=== PATIENT | female | born 1970 | race American Indian/Alaskan Native ===

== ENCOUNTER 2019-06-23 04:35 | Emergency (ER) | payer OTHER ==
[~2019-06-23] VITALS: Ht 165.1 cm; Wt 97.5 kg
[2019-06-23] MEDS ORDERED: GLIPIZIDE XL10 MG PO (04:52)
[2019-06-23] MEDS ORDERED: METFORMIN HCL500 M1 PO (04:52)
[2019-06-23] MEDS ORDERED: MINOCYCLINE HC100 MG PO (04:53)
[2019-06-23] MEDS ORDERED: LANTUS SOL100 UNIT/1 SUB-Q (04:53)
--- NOTE | 2019-06-23 16:38 | EKG ---
[facility] [address] [facility] [place] [address] Signed Normal sinus rhythm Normal ECG No previous ECGs available Confirmed by RACHELLE ARELLANO MD ([id number]) on 06/23/2019 4:37:49 PM Electronically Signed By: RACHELLE ARELLANO MD 06/23/19 1638 PATIENT NAME: RENÉE ROMAN Electrocardiogram DATE OF : 68 PHYSICIAN: RACHELLE ARELLANO MD REPORT #: [id number] REPORT IS CONFIDENTIAL AND NOT TO BE RELEASED WITHOUT AUTHORIZATION
== END 2019-06-23 05:35 | disposition home or self-care (01) ==
LOC: ED 04:35
DX: R07.9 Chest pain, unspecified (principal); E11.9 Type 2 diabetes mellitus without complications; Z79.84 Long term (current) use of oral hypoglycemic drugs
CPT/HCPCS: 71045; 80053; 83735; 84484; 85025; 93005; 93010; 99285-25

== ENCOUNTER 2020-06-27 12:26 | Emergency (ER) | payer OTHER ==
[~2020-06-27] VITALS: Ht 165.1 cm; Wt 97.5 kg
[~2020-06-27 12:26] MED LIST: GLIPIZIDE XL10 MG PO; LANTUS SOL100 UNIT/1 SUB-Q; METFORMIN HCL500 M1 PO; MINOCYCLINE HC100 MG PO
== END 2020-06-27 14:47 | disposition home or self-care (01) ==
LOC: ED 12:26
DX: N93.9 Abnormal uterine and vaginal bleeding, unspecified (principal); E11.9 Type 2 diabetes mellitus without complications; Z79.899 Other long term (current) drug therapy; Z79.4 Long term (current) use of insulin
CPT/HCPCS: 76830; 76856; 80048; 81001; 84702; 85025; 99284-25

== ENCOUNTER 2022-11-15 06:29 | Day surgery (SDC) | payer OTHER ==
--- NOTE | ~2022-11-15 | OR ---
[facility] [address] [place], [place] [address] Draft DATE OF OPERATION: 11/15/2022 SURGEON: Domonique Ortega MD PREOPERATIVE DIAGNOSIS: Colon screening, episodic rectal bleeding. POSTOPERATIVE DIAGNOSIS: Two small polyps of the rectosigmoid (excised) and internal hemorrhoids. PROCEDURE: Total colonoscopy to the cecum with cold morcellation polypectomy x2. ANESTHESIA: Intravenous sedation; fentanyl 100 mcg and Versed 5 mg. INDICATION: This 52-year-old woman is a patient of Dr. Gonzalez at [facility] and referred for colon screening. She has episodic rectal bleeding, none in recent times. She has had colonoscopy in 1999 and has no family history of colon cancer that she is aware of. She understands the risk of bleeding, infection and perforation related to colonoscopy and wished to proceed. FINDINGS: The prep was excellent. Complete colonoscopy was undertaken to the cecum without question. She had two very small polyps of the rectosigmoid, both excised. Retroflexed view confirmed internal hemorrhoidal changes. She had no sign of active bleeding at this time. DESCRIPTION OF PROCEDURE: The patient was brought to the endoscopy suite and placed in the lateral decubitus position, given intravenous sedation to the point of slurred speech and nystagmus. Digital rectal examination was normal. An Olympus video colonoscope was passed in the rectum and manipulated throughout the colon ultimately intubating the cecum itself. The ileocecal valve and the appendiceal orifice were normal. The scope was withdrawn from that point and examination throughout undertaken ultimately showing two very small polyps in the rectosigmoid, both were excised with cold morcellation technique. Retroflexed view was undertaken showing internal hemorrhoidal change. The hemorrhoids were not bleeding. The scope was PATIENT NAME: RENÉE ROMAN OPERATIVE REPORT DATE OF : 68 REPORT #: [id number] PHYSICIAN: DOMONIQUE ORTEGA MD PCP: ARELY GONZALEZ MD REPORT IS CONFIDENTIAL AND NOT TO BE RELEASED WITHOUT AUTHORIZATION [facility] [address] [place], [place] [address] Draft withdrawn and removed. The patient was taken to the recovery room in good condition. CONCLUDING DIAGNOSES: 1. Two small polyps of the rectosigmoid (excised). 2. Internal hemorrhoids. PLAN: Recommend repeat colonoscopy in 3 to 5 years, sooner if clinically indicated. Would recommend high-fiber diet. If recurrent rectal bleeding should recur, consideration for internal hemorrhoidal banding would be undertaken. She will return to the ongoing care of Dr. Gonzalez at [facility]. MD HAMZAH Turcios/MODL /[id number] cc: Arely Gonzalez MD Copies: ARELY GONZALEZ MD ~ PATIENT NAME: RENÉE ROMAN OPERATIVE REPORT DATE OF : 68 REPORT #: [id number] PHYSICIAN: DOMONIQUE ORTEGA MD PCP: ARELY GONZALEZ MD REPORT IS CONFIDENTIAL AND NOT TO BE RELEASED WITHOUT AUTHORIZATION
[2022-11-15 06:45] VITALS: BP 136/79
[2022-11-15] MEDS ORDERED: OZEMPIC0.25 MG/01 SQ (06:48)
--- NOTE | 2022-11-15 08:06 | NUR ---
11/15/22 0806 Jena Crane 0802-PT TO PACU IN LL POSITION. EYES CLOSED. PT RESPONDS TO VERBAL AND TACTILE STIMULI. DENIES PAIN AND FALLS QUICKLY BACK TO SLEEP WITHOUT RN STIMULI. BREATHING EASY AND UNLABORED. SPO2 >90% ON ROOM AIR. PT EDUCATED TO POC IN PACU AND ENCOURAGED TO PASS GAS.
[2022-11-15 08:56] VITALS: BP 138/70
--- NOTE | 2022-11-17 15:18 | PATH ---
[facility] [address] [place], [place] [address] Signed SPECIMEN(S): A RECTOSIGMOID POLYP SPECIMEN SOURCE: A. RECTOSIGMOID POLYP CLINICAL HISTORY: Colonoscopy FINAL PATHOLOGIC DIAGNOSIS: Rectosigmoid polyp, polypectomy: - Hyperplastic polyp. - Negative for dysplasia. NA:cml:C2NR MICROSCOPIC EXAMINATION: Histologic sections of all submitted blocks are examined by light microscopy. These findings, together with the gross examination, support the pathologic diagnosis. GROSS DESCRIPTION: The specimen, labeled and designated "Roselyn Bernabe," and designated on the requisition "colon, rectosigmoid polyp," is received in formalin and consists of two mccormick soft polypoid tissue fragments measuring 0.4 to 0.5 cm in length and up to 0.2 cm in diameter. The specimens are submitted entirely in (A1). MMA (under the direct supervision of a pathologist) The Gross Description was prepared using a voice recognition system. The report was reviewed for accuracy; however, sound-alike word errors, addition and/or deletions may occur. If there is any question about this report, please contact Client Services. PERFORMING LABORATORY: Technical component was performed by [facility], [address] [place] [id number] (CLIA# [id number]). Professional interpretation was performed by [facility], [address] [place] [id number] (CLIA# [id number]). Diagnostician: Seun Aviles MD Pathologist Electronically Signed 11/17/2022 PATIENT NAME: RENÉE BERNABE PATHOLOGY DATE OF : [birth year] REPORT #: [id number] PHYSICIAN: [facility] PCP: ARELY ENGLISH MD REPORT IS CONFIDENTIAL AND NOT TO BE RELEASED WITHOUT AUTHORIZATION [address] [place], [place] [address] Signed Copies: ~ PATIENT NAME: RENÉE BERNABE PATHOLOGY DATE OF : [birth year] REPORT #: [id number] PHYSICIAN: [facility] PCP: ARELY ENGLISH MD REPORT IS CONFIDENTIAL AND NOT TO BE RELEASED WITHOUT AUTHORIZATION
== END 2022-11-15 08:55 | disposition home or self-care (01) ==
LOC: OPS 06:29 → DS 06:29 → OPS 07:30
PROVIDERS: ATTEND Surgery
PROC: 0DBN8ZX Excision of Sigmoid Colon, Via Natural or Artificial Opening Endoscopic, Diagnostic (ICD-10-PCS; principal; 2022-11-15 07:30)
DX: Z12.11 Encounter for screening for malignant neoplasm of colon (principal); K63.5 Polyp of colon; K64.8 Other hemorrhoids; E11.9 Type 2 diabetes mellitus without complications; E66.9 Obesity, unspecified; Z79.84 Long term (current) use of oral hypoglycemic drugs; Z79.4 Long term (current) use of insulin; Z90.49 Acquired absence of other specified parts of digestive tract; Z86.010 Personal history of colon polyps
CPT/HCPCS: 99153; G0500; J2250; J3010; J7121

== ENCOUNTER 2024-01-01 15:31 | Emergency (ER) | payer OTHER ==
[~2024-01-01] VITALS: Ht 165.1 cm; Wt 91.3 kg
[~2024-01-01 15:31] MED LIST changes: +OZEMPIC0.25 MG/01 SQ
[2024-01-01] MEDS ORDERED: MOUNJARO5 MG/0.5 M SUB-Q (16:03)
[2024-01-01] MEDS ORDERED: predniSONE 20 MG TAB PO ONE (16:30)
[2024-01-01 16:44] LABS: BASOPHILS 0.6 % (0-2); EOSINOPHILS 2.7 % (0-6); HEMATOCRIT 38.1 % (35.0-50.0); HEMOGLOBIN 12.6 g/dL (12.0-18.0); LYMPHOCYTES 29.8 % (24-44); MCH 28.3 (27-36); MCV 85.6 fl (81-99); NEUTROPHILS 61.9 % (39-80); PLATELET COUNT 246 K/uL (140-440); RBC 4.45 M/ul (4.3-5.7); RDW 16.4 (10.5-15.0)
[2024-01-01 16:58] LABS: ALBUMIN 3.6 g/dL (3.4-5.0); ALBUMIN/GLOBULIN RATIO 1.06 (1.1-2.4); ANION GAP 14.5 (7-21); BILIRUBIN, TOTAL 0.7 ng/dL (0.2-1.0); BUN/CREATININE RATIO 20.58 (6.0-28.6); CALCIUM 9.4 mg/dL (8.5-10.1); CREATININE, SERUM 1.02 mg/dL (0.55-1.02); POTASSIUM 3.5 mmol/L (3.5-5.1)
[2024-01-01] MEDS ORDERED: PREDNISONE20 MG PO (17:19)
[2024-01-01 17:33] VITALS: BP 120/81
== END 2024-01-01 17:33 | disposition home or self-care (01) ==
LOC: ED 15:31
PROVIDERS: Emergency Medicine
DX: R21 Rash and other nonspecific skin eruption (principal); L29.9 Pruritus, unspecified; E11.9 Type 2 diabetes mellitus without complications; Z79.84 Long term (current) use of oral hypoglycemic drugs; Z79.85 Long-term (current) use of injectable non-insulin antidiabetic drugs
CPT/HCPCS: 36415; 80053; 85025; 99283; J7512